=== PATIENT | male | born 1960 | race Caucasian/White ===

== ENCOUNTER 2022-03-13 13:14 | Outpatient (CLI) | payer OTHER ==
[2022-03-13 15:06] LABS: Mean Corpuscular HGB CONC 32.9 g/dL (32.0-36.0); Mean Corpuscular Hemoglobin 29.3 pg (27.0-33.0); Mean Corpuscular Volume 89.1 fl (81.2-95.1); Mean Platelet Volume 9.6 fl (7.4-10.4); Platelet Count 252 10x3/uL (150-450); RBC Distribution Width 13.1 % (11.5-14.5); Red Blood Cell (RBC) Count 4.78 10x6/uL (4.32-5.72); White Blood Cell (WBC) Count 5.8 10x3/uL (3.5-10.5)
[2022-03-13 15:32] LABS: Anion Gap 15 mmol/L (10-20); BUN (Urea Nitrogen) 14 mg/dL (8.4-25.7); Calc. Creatinine Clearance 0 mL/min (70-130); Calcium 9.4 mg/dL (7.8-10.44); Carbon Dioxide 26 mmol/L (23-31); Chloride 101 mmol/L (98-107); Estimated GFR 76; Glucose 106 mg/dL (80-115); Potassium 4.4 mmol/L (3.5-5.1); Sodium 138 mmol/L (136-145)
== END 2022-03-13 13:15 | disposition home or self-care (01) ==
LOC: LABBT 13:14
PROVIDERS: ATTEND Neurological Surgery
DX: Z01.818 Encounter for other preprocedural examination (principal); M48.062 Spinal stenosis, lumbar region with neurogenic claudication
CPT/HCPCS: 80048; 85027; 93005; 93010

== ENCOUNTER 2022-03-13 13:30 | Inpatient (IN) | payer OTHER ==
[2022-03-15 10:12] VITALS: BMI 28.3
[2022-03-18] MEDS ORDERED: Vancomycin 1 GM VIAL ONE (06:25)
[2022-03-18] MEDS ORDERED: Dexmedetomidine 200 MCG/2 ML VIAL ONE (06:45)
[2022-03-18] MEDS ORDERED: Fentanyl 250 MCG/5 ML VIAL ONE (06:45)
[2022-03-18] MEDS ORDERED: CEFAZOLIN 2 GM VIAL ONE ×2 (07:02→15:05)
[2022-03-18] MEDS ORDERED: Sodium Chloride 0.9% 100 ML ONE ×2 (07:02→15:05)
[2022-03-18] MEDS ORDERED: diphenhydrAMINE 25 MG CAP PO PRN (07:06)
[2022-03-18] MEDS ORDERED: Ondansetron PF 4 MG/2 ML Vial IVP PRN (07:06)
[2022-03-18] MEDS ORDERED: Milk Of Magnesia 30 ML UDCUP PO PRN (07:06)
[2022-03-18] MEDS ORDERED: Acetaminophen/Codeine 30-300mg Tablet PO PRN (07:06)
[2022-03-18] MEDS ORDERED: Mag-Al 1200 mg/1200 mg/30 ML UDCUP PO PRN (07:06)
[2022-03-18] MEDS ORDERED: Morphine 2 MG/ML VIAL SLOW IVP PRN (07:06)
[2022-03-18] MEDS ORDERED: Cyclobenzaprine 10 MG TAB PO PRN (07:06)
[2022-03-18] MEDS ORDERED: Promethazine 25 MG TAB PO PRN (07:06)
[2022-03-18] MEDS ORDERED: Midazolam HCl 2 mg/2 ml Vial ONE (07:07)
[2022-03-18 07:19] LABS: SARS-CoV-2 NAA Rapid Test Not Detected (NotDetected)
[2022-03-18] MEDS ORDERED: Rocuronium Bromide 10 MG/ML (10ML VIAL) ONE (07:22)
[2022-03-18] MEDS ORDERED: PROPOFOL 200 MG/20 ML VIAL ONE (07:22)
[2022-03-18] MEDS ORDERED: Ondansetron PF 4 MG/2 ML Vial ONE (07:22)
[2022-03-18] MEDS ORDERED: Dexamethasone 20 MG/5 ML VIAL ONE (07:22)
[2022-03-18] MEDS ORDERED: Lidocaine 1% PF 5 ML VIAL ONE (07:22)
[2022-03-18] MEDS ORDERED: NEOSTIGMINE 3 MG/3 ML SYR 3 MG/3 ML SYRINGE ONE (07:22)
[2022-03-18] MEDS ORDERED: Glycopyrrolate 0.2 MG/ML 5 ML SYRINGE ONE (07:22)
[2022-03-18] MEDS ORDERED: Ketorolac Tromethamine 30 MG/ML VIAL ONE (07:22)
[2022-03-18] MEDS ORDERED: diphenhydrAMINE 50 MG/ML VIAL ONE (07:22)
[2022-03-18] MEDS ORDERED: Morphine Sulfate 2 MG/ML SYRINGE SLOW IVP PRN (07:52)
[2022-03-18] MEDS ORDERED: Promethazine HCl 25 MG/ML VIAL IM PRN (07:52)
[2022-03-18] MEDS ORDERED: HYDROmorphone 2 MG/ML VIAL SLOW IVP PRN (07:52)
[2022-03-18] MEDS ORDERED: PACU-Morphine 4MG/ML VIAL SLOW IVP PRN (07:52)
[2022-03-18] MEDS ORDERED: Promethazine HCl 25 MG/ML VIAL IVPB PRN (07:52)
[2022-03-18] MEDS ORDERED: Ondansetron HCl/PF 4 MG/2 ML Vial IVP PRN (07:52)
[2022-03-18] MEDS ORDERED: Fentanyl 100 MCG/2 ML VIAL ONE (11:01)
[2022-03-18] MEDS: CEFAZOLIN 2 GM in Sodium Chloride 0.9% 100 ML IVPB SCH ×2 (15:21→23:17)
[2022-03-18] MEDS: Valsartan 80 MG TAB PO SCH (15:57)
[2022-03-18] MEDS: Hydrochlorothiazide 25 MG TAB PO SCH (15:57)
[2022-03-18] MEDS: Sodium Chloride 0.9% 1,000 ML IV SCH (15:57)
[2022-03-18] MEDS ORDERED: FLU VACC QS2022-23(6MOS UP)/PF 60 MCG/0.5 ML SYRINGE IM ONE (16:00)
[2022-03-18] MEDS: Acetaminophen/Codeine 30-300mg Tablet PO PRN (23:20)
[2022-03-19] MEDS: Sodium Chloride 0.9% 1,000 ML IV SCH (00:59)
[2022-03-19] MEDS ORDERED: Tamsulosin HCl 0.4 MG CAP PO SCH (06:00)
[2022-03-19] MEDS: Hydrochlorothiazide 25 MG TAB PO SCH (08:29)
[2022-03-19] MEDS: Valsartan 80 MG TAB PO SCH (08:30)
[2022-03-19] MEDS: Acetaminophen/Codeine 30-300mg Tablet PO PRN (11:04)
[2022-03-19 11:31] VITALS: BP 126/66; TEMP 98.7
== END 2022-03-19 11:43 | disposition home or self-care (01) | DRG 460 ==
LOC: SURG A 03-18 05:46 → T4-A 03-18 15:50
PROVIDERS: ADMIT Neurological Surgery; ATTEND Neurological Surgery
PROC: 0SG0071 Fusion of Lumbar Vertebral Joint with Autologous Tissue Substitute, Posterior Approach, Posterior Column, Open Approach (ICD-10-PCS; principal; 2022-03-18)
PROC: 01NB0ZZ Release Lumbar Nerve, Open Approach (ICD-10-PCS; 2022-03-18)
PROC: 3E0U0GB Introduction of Recombinant Bone Morphogenetic Protein into Joints, Open Approach (ICD-10-PCS; 2022-03-18)
DX: M48.062 Spinal stenosis, lumbar region with neurogenic claudication (principal); Z20.822 Contact with and (suspected) exposure to COVID-19; K21.9 Gastro-esophageal reflux disease without esophagitis; I10 Essential (primary) hypertension; Z28.21 Immunization not carried out because of patient refusal; Z91.09 Other allergy status, other than to drugs and biological substances; Z88.8 Allergy status to other drugs, medicaments and biological substances; Z79.899 Other long term (current) drug therapy
CPT/HCPCS: C1713; C1768; J1100; J1200; J1885; J2250; J2272; J2405; J2704; J3010; J3370; J3490; J7050; U0002

== ENCOUNTER 2022-04-02 12:46 | Outpatient (CLI) | payer OTHER | END 2022-04-02 12:47 | disposition home or self-care (01) | LOC: TBSIIMAG 12:46 | PROVIDERS: ATTEND Neurological Surgery | DX: M48.062 Spinal stenosis, lumbar region with neurogenic claudication (principal); M47.816 Spondylosis without myelopathy or radiculopathy, lumbar region; Q76.49 Other congenital malformations of spine, not associated with scoliosis; I70.0 Atherosclerosis of aorta; Z98.890 Other specified postprocedural states | CPT/HCPCS: 72100 ==

== ENCOUNTER 2022-04-26 08:29 | Outpatient (CLI) | payer OTHER | END 2022-04-26 08:30 | disposition home or self-care (01) | LOC: ULT 08:29 | PROVIDERS: ATTEND Neurological Surgery | DX: M79.605 Pain in left leg (principal) ==

== ENCOUNTER 2022-06-05 10:11 | Outpatient (CLI) | payer OTHER ==
[2022-06-05 11:13] LABS: Hemoglobin 13.2 g/dL (13.5-17.5); Mean Corpuscular HGB CONC 31.5 g/dL (32.0-36.0); Mean Corpuscular Hemoglobin 27.3 pg (27.0-33.0); Mean Corpuscular Volume 86.6 fl (81.2-95.1); Mean Platelet Volume 9.5 fl (7.4-10.4); Platelet Count 261 10x3/uL (150-450); RBC Distribution Width 14.8 % (11.5-14.5); Red Blood Cell (RBC) Count 4.84 10x6/uL (4.32-5.72); White Blood Cell (WBC) Count 6.9 10x3/uL (3.5-10.5)
[2022-06-05 11:27] LABS: Anion Gap 16 mmol/L (10-20); BUN (Urea Nitrogen) 18 mg/dL (8.4-25.7); Calc. Creatinine Clearance 0 mL/min (70-130); Calcium 9.6 mg/dL (7.8-10.44); Carbon Dioxide 23 mmol/L (23-31); Chloride 102 mmol/L (98-107); Estimated GFR 84; Glucose 128 mg/dL (80-115); Potassium 4.2 mmol/L (3.5-5.1); Sodium 137 mmol/L (136-145)
== END 2022-06-05 10:12 | disposition home or self-care (01) ==
LOC: LABBT 10:11
PROVIDERS: ATTEND Thoracic Surgery (Cardiothoracic Vascular Surgery)
DX: Z01.818 Encounter for other preprocedural examination (principal); I73.9 Peripheral vascular disease, unspecified
CPT/HCPCS: 80048; 85027; 93005; 93010

== ENCOUNTER 2022-06-07 05:40 | Day surgery (SDC) | payer OTHER ==
[2022-06-06 10:01] VITALS: BMI 30.1
[2022-06-07] MEDS ORDERED: Lidocaine 1% (PF) 30 ML VIAL ONE (06:18)
[2022-06-07] MEDS ORDERED: Heparin 10,000 UNITS/ 10 ML VIAL ONE ×2 (06:18→07:38)
[2022-06-07] MEDS ORDERED: Midazolam HCl 2 mg/2 ml Vial ONE ×3 (07:00→08:13)
[2022-06-07] MEDS ORDERED: FENTANYL 50 MCG/ML 1 ML VIAL ONE ×6 (07:00→09:19)
[2022-06-07] MEDS ORDERED: hydrALAZINE 20 MG/ML VIAL ONE (07:34)
[2022-06-07] MEDS ORDERED: Protamine Sulfate 50 MG/5 ML VIAL ONE (08:39)
[2022-06-07] MEDS ORDERED: Clopidogrel Bisulfate 300 MG TAB ONE (08:43)
[2022-06-07] MEDS ORDERED: Iopamidol 370 76% 100 ML VIAL ONE (14:05)
== END 2022-06-07 16:00 | disposition home or self-care (01) ==
LOC: SDC 05:40
PROVIDERS: ATTEND Thoracic Surgery (Cardiothoracic Vascular Surgery)
PROC: 04HD3DZ Insertion of Intraluminal Device into Left Common Iliac Artery, Percutaneous Approach (ICD-10-PCS; principal; 2022-06-07)
PROC: 04HH3DZ Insertion of Intraluminal Device into Right External Iliac Artery, Percutaneous Approach (ICD-10-PCS; 2022-06-07)
PROC: 04HJ3DZ Insertion of Intraluminal Device into Left External Iliac Artery, Percutaneous Approach (ICD-10-PCS; 2022-06-07)
PROC: 04HC3DZ Insertion of Intraluminal Device into Right Common Iliac Artery, Percutaneous Approach (ICD-10-PCS; 2022-06-07)
DX: I70.222 Atherosclerosis of native arteries of extremities with rest pain, left leg (principal); I70.8 Atherosclerosis of other arteries; I10 Essential (primary) hypertension; K21.9 Gastro-esophageal reflux disease without esophagitis; F17.210 Nicotine dependence, cigarettes, uncomplicated; Z88.5 Allergy status to narcotic agent; Z91.048 Other nonmedicinal substance allergy status; Z79.82 Long term (current) use of aspirin; Z79.899 Other long term (current) drug therapy
CPT/HCPCS: 37221; 37223; 75716; 85347 ×2; C1725 ×2; C1769 ×5; C1887; C1894 ×4; J0360; J3010; 99152; 99153; J1644; J2001; J2250; J2720